=== PATIENT | female | born 1925 | race Caucasian/White ===

== ENCOUNTER 2016-05-20 15:16 | Emergency (ER) | payer MEDICARE ==
[~2016-05-20 15:16] MED LIST: ENSURE LIQUID237 ML PO; IBUPROFEN200 MG PO; LEVAQUIN750 MG PO; PROAIR HFA8.5 GM IH; SYNTHROID50 MCG PO; TESSALON PERLE100 MG PO; TUSSIONEX PENN115 ML PO
== END 2016-05-20 18:15 | disposition home or self-care (01) ==
LOC: ER 15:16
DX: K52.9 Noninfective gastroenteritis and colitis, unspecified (principal); Z90.49 Acquired absence of other specified parts of digestive tract; Z88.2 Allergy status to sulfonamides
CPT/HCPCS: 36415; 96361; 96374